=== PATIENT | female | born 1940 | race Caucasian/White ===

== ENCOUNTER → 2017-05-19 | Outpatient (CLI) | payer MEDICARE, OTHER ==
[~2017-05-19] MED LIST: ALPR-429 PO; AMLO-96 PO; BENA10TA4 PO; EST3 PO; LEV75 PO; MET500 PO; METF-410 PO; NITR0.4T3 SL; OMEP-125 PO; VERS180 PO
[2017-05-19 10:23] LABS: LDL CHOLESTEROL 117 mg/dl
== END ==
LOC: LAB 09:29
PROVIDERS: ATTEND Nurse Practitioner Primary Care
DX: E11.65 Type 2 diabetes mellitus with hyperglycemia (principal); E78.00 Pure hypercholesterolemia, unspecified; I10 Essential (primary) hypertension
CPT/HCPCS: 36415; 82040; 82247; 82310; 82374; 82435; 82465; 82565; 82947; 83036; 83718; 84075; 84132; 84155; 84295; 84450; 84460; 84478; 84520

== ENCOUNTER 2017-07-29 06:39 | Emergency (ER) | payer MEDICARE, OTHER ==
[~2017-07-29 06:39] MED LIST changes: +VERA240T12 PO
[2017-07-29] MEDS ORDERED: VERA240T12 PO (06:52)
--- NOTE | 2017-07-29 07:12 | EKG ---
[place] [facility] [place] NAME: GENESIS FLORENTINO : [id number] MR: [id number] V: [id number] EXAM DATE: ORDERING PHYSICIAN: TEJA RIDDLE TECHNOLOGIST: Timothy Thomas Reason : Blood Pressure : / mmHG Vent. Rate : 080 BPM Atrial Rate : 080 BPM P-R Int : 194 ms QRS Dur : 126 ms QT Int : 408 ms P-R-T Axes : -03 017 119 degrees QTc Int : 470 ms Normal sinus rhythm Left bundle branch block Abnormal ECG When compared with ECG of 26-JAN-2017 13:04, Left bundle branch block is now present Criteria for Septal infarct are no longer present Confirmed by HANNAH MONGE ([id number]) on 07/30/2017 6:41:35 AM Referred By: Confirmed By:AHNNAH MOGNE
--- NOTE | 2017-07-29 07:16 | ER Report ---
History and Physical Time Seen By MD: 07:14 Hx. of Stated Complaint: PT REPORTS SHE CHOKED ON A PIECE OF COOKIE TWO DAYS AGO, STILL FEELS SOB, THROAT "HAS A TICKLE" HPI/ROS CHIEF COMPLAINT: Cough HISTORY OF PRESENT ILLNESS: Patient is a 76-year-old female who presents to the emergency department with complaint of cough and dyspnea that began 2 days ago after having a cookie which she "choked on" she denies any pain but feels that her work of breathing has increased since the choking episode. Her cough is nonproductive. REVIEW OF SYSTEMS: Constitutional: No fever, no chills. ENT: [No sore throat.] Cardiovascular: No chest pain, no palpitations. Respiratory: Cough with some dyspnea Gastrointestinal: No abdominal pain, no vomiting. Allergies: Coded Allergies: No Known Drug Allergies (Verified , 07/29/17) Home Meds Active Scripts Prednisone (PREDNISONE) 20 Mg Tablet, 60 MG PO QDAY, #15 TAB 0 Refills Prov:TEJA RIDDLE MD 07/29/17 Reported Medications Verapamil Hcl (VERAPAMIL ER) 240 Mg Tablet.er, 240 MG PO BID 07/29/17 Metformin Hcl (METFORMIN HCL) 500 Mg Tablet, 2 TAB PO BID, TAB 01/26/17 Levothyroxine Sodium (Synthroid/Levothroid) 0.075 Mg Tab, 0.075 MG PO QDAY 04/14/07 Discontinued Scripts Verapamil Hcl (VERAPAMIL ER) 240 Mg Tablet.er, 1 TAB PO DAILY for 30 Days, #30 TAB 0 Refills Prov:RIVER LOPEZ DNP, MILLINERY DESIGNER-BC 07/04/17 Past Medical/Surgical History Past medical history for hypothyroidism and type II diabetes history of congenital heart murmur Hx Substance Use Disorder: No Hx Alcohol Use: No Constitutional Vital Sign - Last 24 Hours 07/29/17 07/29/17 07/29/17 07/29/17 06:45 06:47 07:00 07:09 Temp 97.5 Pulse 86 77 Resp 16 B/P (MAP) 188/79 188/79 (115) 170/71 (104) Pulse Ox 91 88 O2 Delivery Room Air 07/29/17 07/29/17 07/29/17 07/29/17 07:27 07:30 07:38 07:38 Pulse 72 Resp 18 B/P (MAP) 173/74 (107) Pulse Ox 97 O2 Delivery Nasal Cannula O2 Flow Rate 2.0 2.0 07/29/17 07/29/17 07/29/17 07/29/17 07:42 07:42 07:44 07:59 Pulse 71 69 Resp 18 Pulse Ox 100 100 97 O2 Delivery Nasal Cannula O2 Flow Rate 2.0 07/29/17 07/29/17 07/29/17 07/29/17 08:00 08:14 08:19 08:24 Pulse 72 71 72 B/P (MAP) 174/77 (109) Pulse Ox 98 99 97 07/29/17 07/29/17 07/29/17 08:29 08:30 08:35 Pulse 72 70 B/P (MAP) 163/68 (99) Pulse Ox 98 97 Physical Exam General Appearance: The patient is alert, has no immediate need for airway protection and no current signs of toxicity. Respiratory: Chest is non tender, there are some rales to the right lower lung field Cardiac: regular rate and rhythm [ ] Gastrointestinal: Abdomen is soft and non tender, no masses, bowel sounds normal. Musculoskeletal: Neck: Neck is supple and non tender. Extremities have full range of motion and are non tender. Skin: No rashes or lesions. Medical Decision Making Data Points Result Diagram: 07/29/17 0655 07/29/17 0655 Laboratory Hematology Test 07/29/17 06:55 Red Blood Count 4.67 M/uL (4.17-5.56) Mean Corpuscular Volume 92.2 fL (80.0-96.0) Mean Corpuscular Hemoglobin 31.5 pg (26.0-33.0) Mean Corpuscular Hemoglobin Concent 34.2 g/dL (32.0-36.0) Red Cell Distribution Width 14.2 % (11.5-14.5) Mean Platelet Volume 8.7 fL (7.2-11.1) Neutrophils (%) (Auto) 69.9 % (39.4-72.5) Lymphocytes (%) (Auto) 18.7 % (17.6-49.6) Monocytes (%) (Auto) 5.0 % (4.1-12.4) Eosinophils (%) (Auto) 3.8 % (0.4-6.7) Basophils (%) (Auto) 2.6 % (0.3-1.4) Nucleated RBC Relative Count (auto) 0.2 /100WBC Neutrophils # (Auto) 7.7 K/uL (2.0-7.4) Lymphocytes # (Auto) 2.1 K/uL (1.3-3.6) Monocytes # (Auto) 0.6 K/uL (0.3-1.0) Eosinophils # (Auto) 0.4 K/uL (0.0-0.5) Basophils # (Auto) 0.3 K/uL (0.0-0.1) Nucleated RBC Absolute Count (auto) 0.03 K/uL Peripheral Blood Smear Yes Y/N Sodium Level 134 mmol/L (137-145) Potassium Level 4.5 mmol/L (3.5-5.0) Chloride Level 97 mmol/L (98-107) Carbon Dioxide Level 24 mmol/L (22-31) Blood Urea Nitrogen 14 mg/dl (7-18) Creatinine 0.60 mg/dl (0.52-1.04) Glomerular Filtration Rate Calc > 60.0 Random Glucose 184 mg/dl (75-110) Calcium Level 9.8 mg/dl (8.4-10.2) Total Bilirubin 0.5 mg/dl (0.2-1.3) Aspartate Amino Transf (AST/SGOT) 25 U/L (0-35) Alanine Aminotransferase (ALT/SGPT) 26 U/L (0-56) Alkaline Phosphatase 66 U/L (0-126) Troponin I < 0.012 ng/ml B-Type Natriuretic Peptide 131 pg/ml (0-100) Total Protein 6.9 gm/dl (6.3-8.2) Albumin 4.1 g/dl (3.5-5.0) Chemistry Test 07/29/17 06:55 White Blood Count 11.0 k/uL (4.5-11.0) Red Blood Count 4.67 M/uL (4.17-5.56) Hemoglobin 14.7 g/dL (12.0-16.0) Hematocrit 43.1 % (34.0-47.0) Mean Corpuscular Volume 92.2 fL (80.0-96.0) Mean Corpuscular Hemoglobin 31.5 pg (26.0-33.0) Mean Corpuscular Hemoglobin Concent 34.2 g/dL (32.0-36.0) Red Cell Distribution Width 14.2 % (11.5-14.5) Platelet Count 314 K/uL (150-450) Mean Platelet Volume 8.7 fL (7.2-11.1) Neutrophils (%) (Auto) 69.9 % (39.4-72.5) Lymphocytes (%) (Auto) 18.7 % (17.6-49.6) Monocytes (%) (Auto) 5.0 % (4.1-12.4) Eosinophils (%) (Auto) 3.8 % (0.4-6.7) Basophils (%) (Auto) 2.6 % (0.3-1.4) Nucleated RBC Relative Count (auto) 0.2 /100WBC Neutrophils # (Auto) 7.7 K/uL (2.0-7.4) Lymphocytes # (Auto) 2.1 K/uL (1.3-3.6) Monocytes # (Auto) 0.6 K/uL (0.3-1.0) Eosinophils # (Auto) 0.4 K/uL (0.0-0.5) Basophils # (Auto) 0.3 K/uL (0.0-0.1) Nucleated RBC Absolute Count (auto) 0.03 K/uL Peripheral Blood Smear Yes Y/N Glomerular Filtration Rate Calc > 60.0 Calcium Level 9.8 mg/dl (8.4-10.2) Total Bilirubin 0.5 mg/dl (0.2-1.3) Aspartate Amino Transf (AST/SGOT) 25 U/L (0-35) Alanine Aminotransferase (ALT/SGPT) 26 U/L (0-56) Alkaline Phosphatase 66 U/L (0-126) Troponin I < 0.012 ng/ml B-Type Natriuretic Peptide 131 pg/ml (0-100) Total Protein 6.9 gm/dl (6.3-8.2) Albumin 4.1 g/dl (3.5-5.0) EKG/Imaging EKG Interpretation EKG shows normal sinus rhythm with a left bundle branch block and ventricular rate of 80 bpm. 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 Overall pattern could indicate mild fluid overload. Calcified granulomas are noted. There is no pneumothorax. The heart size is upper limits of normal. The osseous structures demonstrate degenerative changes.. IMPRESSION: 1. Pulmonary vascular prominence with small bilateral effusions could indicate mild fluid overload. Report Dictated By: Larry Marin MD at 07/29/2017 8:04 AM Report E-Signed By: Larry Marin MD at 07/29/2017 8:06 AM WSN:[id number] ED Course/Re-evaluation ED Course The patient reports improvement after albuterol nebulizer treatment. Plan will be discharge home with albuterol inhaler and prednisone taper. Decision to Disposition Date: July 29, 2017 Decision to Disposition Time: 08:35 Depart Departure Latest Vital Signs Vital Signs Date Time Temp Pulse Resp B/P (MAP) Pulse Ox O2 Delivery O2 Flow Rate FiO2 07/29/17 08:35 70 97 07/29/17 08:30 163/68 (99) 07/29/17 07:42 18 07/29/17 07:42 Nasal Cannula 2.0 07/29/17 06:45 97.5 Impression: Primary Impression: Dyspnea Condition: Improved Disposition: HOME OR SELF-CARE Referrals: RIVER LOPEZ DNP, MILLINERY DESIGNER-BC (PCP) 2 Days if symptoms persist New Scripts Prednisone (PREDNISONE) 20 Mg Tablet 60 MG PO QDAY, #15 TAB 0 Refills Prov: TEJA RIDDLE MD 07/29/17 Patient Instructions: Dyspnea (ED) Additional Instructions: Albuterol inhaler: 1-2 puffs every 4-6 hours as needed for cough or shortness of breath If your symptoms persist greater than 48-72 hours he should follow up with your primary care provider for reevaluation. Problem Qualifiers Primary Impression: Dyspnea Dyspnea type: unspecified Qualified Codes: R06.00 - Dyspnea, unspecified TEJA RIDDLE MD July 29, 2017 07:16
[2017-07-29 07:28] LABS: PLATELET COUNT, AUTOMATED 314 K/uL (150-450)
[2017-07-29] MEDS ORDERED: ALBUTEROL/IPRATROPIUM 3 ML NEB NEB ONE (07:35)
--- NOTE | 2017-07-29 08:10 | RADIOLOGY IMAGING REPORT ---
FACILITY: [facility] - [place] PATIENT NAME: Renata Dubon : 1940 MR: [id number] V: [id number] EXAM DATE: ORDERING PHYSICIAN: TEJA RIDDLE TECHNOLOGIST: Location: [facility] Patient: Renata Dubon : 1940 Visit/Account:[id number] Date of Sevice: 07/29/2017 Exam type: CHEST PA AND LAT History: Respiratory distress, shortness of breath Comparison: 06/23/2016 Findings: interstitial markings are prominent bilaterally and there are small bilateral effusions. Overall pedro robbin could indicate mild fluid overload. Calcified granulomas are noted. There is no pneumothorax. The heart size is upper limits of normal. The osseous structures demonstrate degenerative changes.. IMPRESSION: 1. Pulmonary vascular prominence with small bilateral effusions could indicate mild fluid overload. Report Dictated By: Larry aMrin MD at 07/29/2017 8:04 AM Report E-Signed By: Larry Marin MD at 07/29/2017 8:06 AM WSN:[id number]
[2017-07-29 08:30] VITALS: BP 163/68
[2017-07-29] MEDS ORDERED: PRED20TA6 PO (08:37)
[2017-07-29] MEDS ORDERED: ALBUTEROL SULFATE 90 MCG/ACT 8.5 GM HNH INH ONE (08:40)
[2017-08-01] MEDS ORDERED: VERA240T12 PO (11:35)
== END 2017-07-29 08:45 | disposition home or self-care (01) ==
LOC: ER 06:57
DX: R06.02 Shortness of breath (principal)
CPT/HCPCS: 71046; 83880; 84484; 85025; 93005; 94640; 99284; J7620; 82040; 82247; 82310; 82374; 82435; 82565; 82947; 84075; 84132; 84155; 84295; 84450; 84460; 84520

== ENCOUNTER → 2017-08-15 | Outpatient (CLI) | payer MEDICARE, OTHER ==
[~2017-08-15] MED LIST changes: +FURO-47 PO; -METF-410 PO; +METF-411 PO; +MULT-1354 PO; +PRED20TA6 PO
[2017-08-15 10:14] LABS: PLATELET COUNT, AUTOMATED 255 K/uL (150-450)
--- NOTE | 2017-08-15 10:39 | EKG ---
FACILITY: [facility] PATIENT NAME: GENESIS FLORENTINO : [id number] MR: [id number] V: [id number] EXAM DATE: ORDERING PHYSICIAN: RIVER LOPEZ TECHNOLOGIST: MIRZA PADRON Test Reason : CHEST PAIN Blood Pressure : / mmHG Vent. Rate : 071 BPM Atrial Rate : 071 BPM P-R Int : 188 ms QRS Dur : 132 ms QT Int : 442 ms P-R-T Axes : 002 002 093 degrees QTc Int : 480 ms Normal sinus rhythm Left bundle branch block Abnormal ECG No previous ECGs available Referred By: Confirmed By:
--- NOTE | 2017-08-15 11:05 | RADIOLOGY IMAGING REPORT ---
FACILITY: [facility] - [place] PATIENT NAME: Renata Dubon : 1940 MR: [id number] V: [id number] EXAM DATE: ORDERING PHYSICIAN: RIVER LOPEZ TECHNOLOGIST: Location: [facility] Patient: Renata Dubon : 1940 Visit/Account:[id number] Date of Sevice: 08/15/2017 CHEST, 2 Views HISTORY: Chest pain and tightness COMPARISON: 07/29/2017, CT chest 05/04/2011 FINDINGS: Heart size is normal. Normal size thoracic aorta is calcified at the arch. Central pulmonary vasculat ure is distended, unchanged. Mediastinum and charisse are stable. Mild bibasilar lung atelectasis is unchanged. There are scattered calcified granulomas in both lungs that are unchanged. Small bilateral dependent pleural effusions are unchanged. There is no pneumothorax. Bones are unremarkable. IMPRESSION: Central pulmonary venous congestion and small bilateral pleural effusions have not changed from 018. Report Dictated By: Gissel Telles MD at 08/15/2017 10:58 AM Report E-Signed By: Gissel Telles MD at 08/15/2017 11:01 AM WSN:[id number]
== END ==
LOC: RAD 09:55
PROVIDERS: ATTEND Nurse Practitioner Primary Care
DX: J90 Pleural effusion, not elsewhere classified (principal); I70.0 Atherosclerosis of aorta; I44.7 Left bundle-branch block, unspecified; R94.31 Abnormal electrocardiogram [ECG] [EKG]
CPT/HCPCS: 36415; 71046; 82040; 82247; 82310; 82374; 82435; 82565; 82947; 83880; 84075; 84132; 84155; 84295; 84450; 84460; 84484; 84520; 85025

== ENCOUNTER → 2017-08-23 | Outpatient (CLI) | payer MEDICARE, OTHER ==
[~2017-08-23] MED LIST changes: +FURO-45 PO
== END ==
LOC: LAB 10:15
PROVIDERS: ATTEND Nurse Practitioner Primary Care
DX: I10 Essential (primary) hypertension (principal)
CPT/HCPCS: 36415; 82040; 82247; 82310; 82374; 82435; 82565; 82947; 84075; 84132; 84155; 84295; 84450; 84460; 84520

== ENCOUNTER → 2017-10-03 | Outpatient (CLI) | payer MEDICARE, OTHER ==
[~2017-10-03] MED LIST changes: +METF-415 PO
[2017-10-03 11:39] LABS: LDL CHOLESTEROL 110 mg/dl
== END ==
LOC: LAB 10:58
PROVIDERS: ATTEND Nurse Practitioner Primary Care
DX: I10 Essential (primary) hypertension (principal); E78.00 Pure hypercholesterolemia, unspecified; E11.9 Type 2 diabetes mellitus without complications
CPT/HCPCS: 36415; 82040; 82247; 82310; 82374; 82435; 82465; 82565; 82947; 83036; 83718; 84075; 84132; 84155; 84295; 84450; 84460; 84478; 84520

== ENCOUNTER → 2017-12-29 | Outpatient (CLI) | payer MEDICARE, OTHER ==
[~2017-12-29] MED LIST changes: +AMLO-111 PO; -AMLO-96 PO; -BENA10TA4 PO; +BENA10TA55 PO; -METF-411 PO; -METF-415 PO; +METF-450 PO; +METF-451 PO
[2017-12-29 09:59] LABS: LDL CHOLESTEROL 113 mg/dl
== END ==
LOC: LAB 09:23
PROVIDERS: ATTEND Nurse Practitioner Primary Care
DX: E78.00 Pure hypercholesterolemia, unspecified (principal); I10 Essential (primary) hypertension; E11.9 Type 2 diabetes mellitus without complications
CPT/HCPCS: 36415; 82040; 82247; 82310; 82374; 82435; 82465; 82565; 82947; 83036; 83718; 84075; 84132; 84155; 84295; 84450; 84460; 84478; 84520

== ENCOUNTER → 2018-01-31 | Outpatient (CLI) | payer MEDICARE, OTHER ==
[~2018-01-31] MED LIST changes: +LOSA50TA74 PO; +METO-253 PO
[2018-01-31 15:39] LABS: PLATELET COUNT, AUTOMATED 298 K/uL (150-450)
== END ==
LOC: LAB 14:29
PROVIDERS: ATTEND Nurse Practitioner Primary Care
DX: I10 Essential (primary) hypertension (principal)
CPT/HCPCS: 36415; 81001; 82040; 82043; 82088; 82247; 82310; 82374; 82435; 82565; 82947; 84075; 84132; 84155; 84244; 84295; 84443; 84450; 84460; 84520; 84550; 85025

== ENCOUNTER → 2018-02-09 | Outpatient (CLI) | payer MEDICARE, OTHER ==
--- NOTE | 2018-02-09 15:36 | RADIOLOGY IMAGING REPORT ---
FACILITY: [facility] PATIENT NAME: Renata Dubon : 1940 MR: [id number] V: [id number] EXAM DATE: ORDERING PHYSICIAN: RIVER LOPEZ TECHNOLOGIST: Location: [facility] Patient: Renata Dubon : 1940 Visit/Account:[id number] Date of Sevice: 02/09/2018 EXAMINATION: Renal ultrasound with Doppler 02/09/2018 9:00 AM HISTORY: Hypertension. COMPARISON STUDIES: none FINDINGS: Kidneys: Right kidney- 9.9 x 4.1 x 4.5 cm, normal parenchymal thickness and echogenicity. Left kidney- 10.4 x 5.3 x 4.7 cm, normal parenchymal thickness and echogenicity. The patient had difficulty holding his breath hold during the study. Doppler shows fairly symmetric flow to the kidneys. Right side: Arcuate-resistive indices between 0.70 and 0.80 Interlobar-resistive indices between 0.74 and 0.84 Segmental-resistive indices between 0.54 and 0.90 Left side: Arcuate-resistive indices between 0.61 and 0.81 Interlobar-resistive indices between 0.77 and 0.83 Segmental-resistive indices between 0.78 and 0.84 Hydronephrosis: None Bladder: Not imaged There is a lobulated solid structure associated with the liver measured at 6.6 x 7.8 x 7.9 cm. IMPRESSION: 1. Resistive indices are elevated in both kidneys with fairly symmetrically so and this possibly age -related. 2. Lobulated solid appearance associated with the liver. Based on the images acquired, uncertain if this simply a lobulated cirrhotic liver or if this is a discrete focal liver mass. Right upper quad rant ultrasound might define if this is a lobulated liver or liver mass, by CT or MR would probably b e more definitive. Report Dictated By: Rafael Hutson MD at 02/09/2018 2:52 PM Report E-Signed By: Rafael Hutson MD at 02/09/2018 3:32 PM WSN:[email or web address]
== END ==
LOC: US 02:14
PROVIDERS: ATTEND Nurse Practitioner Primary Care
DX: R93.2 Abnormal findings on diagnostic imaging of liver and biliary tract (principal)
CPT/HCPCS: 93975

== ENCOUNTER → 2018-02-21 | Outpatient (CLI) | payer MEDICARE, OTHER ==
[~2018-02-21] MED LIST changes: +IOPAMIDOL 76% 75 ML INFUS BTL 75 ML ONE
--- NOTE | 2018-02-21 13:52 | RADIOLOGY IMAGING REPORT ---
FACILITY: [facility] PATIENT NAME: Renata Dubon : 1940 MR: [id number] V: [id number] EXAM DATE: ORDERING PHYSICIAN: RIVER LOPEZ TECHNOLOGIST: Location: [facility] [place] Patient: Renata Dubon : 1940 Visit/Account:[id number] Date of Sevice: 02/21/2018 CHEST/AB/PELV W/CONTRAST HISTORY: Liver mass on prior ultrasound ADDITIONAL HISTORY: None. TECHNIQUE: Following administration of IV contrast axial images acquired through the chest abdomen a nd pelvis during the portal venous phase. Arterial phase and delayed phase imaging was also obtained through the liver. Coronal and sagittal reformatting was also performed.Dose Lowering Technique One of the following dose optimization techniques was utilized in the performance of this exam: Autom ated exposure control; adjustment of the mA and/or kV according to the patient's size; or use of an i terative reconstruction technique. Specific details can be referenced in the facility's radiology C T exam operational policy. CONTRAST: 75 mL [id number] COMPARISON: Renal arterial ultrasound February 09, 2018, CT chest June 14, [address] chest seven pelvis every 2011 FINDINGS: CHEST: Lungs/Pleura: Multiple calcified granulomas are again seen throughout the lungs. There are small po sterior layering bilateral pleural effusions with compressive atelectasis in the lower lobes. There is patchy airspace consolidation seen in the anterior left upper lobe not appreciated previously Mediastinum/lymph nodes: There are small calcified hilar AP window and paratracheal lymph nodes cons istent with a prior granulomatous process Heart/vessels: Coronary artery calcifications are present Bones/soft tissues: There spondylotic changes of the thoracic spine. No aggressive appearing bone l esions are seen ABDOMEN AND PELVIS: Hepatobiliary: Hepatic cyst in the left lobe is partially decreased in size now measuring 6.7 cm no other hepatic lesion is seen. There are several small calcified granulomas present . There is a sl ightly lobular contour to the liver which may be related to early cirrhosis Spleen: Multiple calcified granulomas Pancreas: Negative Adrenals: Negative. Kidneys ureters and bladder : Mild cortical scarring upper pole the right kidney again seen Genitalia: Postsurgical changes from hysterectomy GI: Negative. Vessels/spaces/nodes: There are moderate atherosclerotic calcifications in the abdominal aorta and b ranch vessels Bones/soft tissues: Negative. Additional findings: None pertinent. IMPRESSION: Evidence for prior granuloma this process Small posterior layering bilateral pleural effusions with compressive atelectasis lower lobes. Patchy airspace consolidation anterior left upper lobe which was not present previously may represent an acute infiltrate clinical follow-up recommended 6.7 cm hepatic cyst left lobe of the liver slightly decreased in size when compared the prior study Slightly lobular contour to the liver which may be related to early cirrhosis. No other hepatic mass identified . Report Dictated By: Victoria Mcgraw MD at 02/21/2018 1:12 PM Report E-Signed By: Victoria Mcgraw MD at 02/21/2018 1:47 PM [place]
== END ==
LOC: CT 00:46
PROVIDERS: ATTEND Nurse Practitioner Primary Care
DX: K76.89 Other specified diseases of liver (principal)
CPT/HCPCS: 71260; 74177; Q9967

== ENCOUNTER → 2018-07-13 | Outpatient (CLI) | payer MEDICARE, OTHER ==
[~2018-07-13] MED LIST changes: -AMLO-111 PO; +AMLO-125 PO; -IOPAMIDOL 76% 75 ML INFUS BTL 75 ML ONE; -LOSA50TA74 PO; +LOSA50TA80 PO; -VERA240T12 PO; +VERA240T95 PO
[2018-07-13 12:38] LABS: PLATELET COUNT, AUTOMATED 290 K/uL (150-450)
[2018-07-13 12:40] LABS: INR 0.95
== END ==
LOC: LAB 12:03
PROVIDERS: ATTEND Nurse Practitioner Family
DX: Q44.6 Cystic disease of liver (principal); I10 Essential (primary) hypertension; E11.9 Type 2 diabetes mellitus without complications; E03.9 Hypothyroidism, unspecified
CPT/HCPCS: 36415; 80074; 82040; 82103; 82105; 82247; 82310; 82374; 82390; 82435; 82565; 82728; 82947; 82977; 83516; 83540; 83550; 84075; 84132; 84155; 84295; 84450; 84460; 84520; 85025; 85610; 86038